=== PATIENT | male | born 1960 | race Caucasian/White ===

== ENCOUNTER 2021-09-17 12:49 | Emergency (ER) | payer OTHER ==
[2021-09-17 15:56] LABS: HEMOGLOBIN 16.7 gm/dl (14.0-17.5); RED BLOOD COUNT 5.41 M/UL (4.20-5.50); WHITE BLOOD COUNT 9.6 K/UL (4.5-11.0)
[2021-09-17 16:22] LABS: BUN/CREATININE RATIO 28 (0-10)
[2021-09-17 21:39] LABS: BUN/CREATININE RATIO 28 (0-10)
== END 2021-09-17 23:00 | disposition home or self-care (01) ==
LOC: ER1 12:49
PROVIDERS: Physician Assistant
DX: R00.2 Palpitations (principal); R05.9 Cough, unspecified; Z20.822 Contact with and (suspected) exposure to COVID-19
CPT/HCPCS: 71045; 80053; 81001; 82550; 82553; 83874; 84484; 85025; 93005; 99285; U0002